=== PATIENT | female | born 1995 | race African-American/Black ===

== ENCOUNTER 2020-06-07 16:22 | Emergency (ER) | payer OTHER ==
[~2020-06-07] VITALS: Ht 165.1 cm; Wt 75.0 kg
[2020-06-07] MEDS ORDERED: ACETAMINOPHEN 325MG TABLET PO ONE (17:00)
[2020-06-07] MEDS ORDERED: LIDOCAINE 5% PATCH TOP SCH (17:00)
[2020-06-07] MEDS ORDERED: IBUPROFEN 600MG TABLET PO ONE (17:00)
[2020-06-07 18:03] VITALS: BP 114/56
== END 2020-06-07 19:24 | disposition home or self-care (01) ==
LOC: ER 16:38
DX: S40.021A Contusion of right upper arm, initial encounter (principal); F41.9 Anxiety disorder, unspecified; Z86.19 Personal history of other infectious and parasitic diseases; V43.52XA Car driver injured in collision with other type car in traffic accident, initial encounter; Y93.89 Activity, other specified; Y92.488 Other paved roadways as the place of occurrence of the external cause
CPT/HCPCS: 73060; 73130; 81025; 99284